=== PATIENT | male | born 1950 | race Two or more races ===

== ENCOUNTER 2017-02-26 15:47 | Emergency (ER) | payer OTHER ==
[~2017-02-26] VITALS: Ht 152.4 cm; Wt 49.9 kg
[2017-02-26 15:57] VITALS: BP 174/107
[2017-02-26] MEDS ORDERED: HYDROCODONE/APAP 5/325MG 1 EACH TABLET ONE (16:17)
[2017-02-26] MEDS ORDERED: ONDANSETRON 4 MG TAB.RAPDIS ONE (16:18)
--- NOTE | 2017-02-26 16:23 | NUR ---
PT TO RADIOLOGY FOR LUMBAR SPINE XRAY VIA WHEELCHAIR.
[2017-02-26] MEDS ORDERED: HYDROCODONE/APAP 5/325MG 1 EACH TABLET PO ONE (16:30)
[2017-02-26] MEDS ORDERED: ONDANSETRON 4 MG TAB.RAPDIS SL ONE (16:30)
== END 2017-02-26 17:57 | disposition home or self-care (01) ==
LOC: ER 15:50
DX: S62.305A Unspecified fracture of fourth metacarpal bone, left hand, initial encounter for closed fracture (principal); M25.552 Pain in left hip; M54.5 Low back pain; I10 Essential (primary) hypertension; Z98.890 Other specified postprocedural states; W19.XXXA Unspecified fall, initial encounter; Y93.89 Activity, other specified; Y92.091 Bathroom in other non-institutional residence as the place of occurrence of the external cause; Y99.8 Other external cause status
CPT/HCPCS: 29125; 72100; 73120; 73503; 99284; A4606; Q0162; Z7610; 73502

== ENCOUNTER 2017-12-09 17:04 | Emergency (ER) | payer MEDICARE, OTHER ==
[~2017-12-09] VITALS: Ht 167.6 cm; Wt 74.8 kg
--- NOTE | 2017-12-09 17:05 | NUR ---
[id number] FROM HOME: CHEST PAIN x 30 MIN RADIATES TO ABDOMEN S/P DRINKING ALCOHOL. PATIENT HAD HIGH BP, DID NOT TAKE HOME BP MEDS TODAY. ASA 162, NITRO 1 SPRAY GIVEN. A/OX 4. BREATHING EVEN AND UNLABORED. NO SOB, NAD, VITALS STABLE. SAFETY AND COMFORT MEASURES IN PLACE. AWAITING MD ORDERS.
--- NOTE | 2017-12-09 17:08 | NUR ---
IV ACCESSED BY DIDI KAUR- BLOOD SAMPLE SENT TO LAB
--- NOTE | 2017-12-09 17:10 | NUR ---
EKG IN PROGRESS
[2017-12-09] MEDS ORDERED: ASPIRIN 81 MG TAB.CHEW ONE (17:23)
[2017-12-09 17:24] LABS: BASOPHILS # (AUTO) 0.1 /CMM (0.0-0.2); BASOPHILS % (AUTO) 0.5 % (0.0-2.0); EOSINOPHILS % (AUTO) 1.3 % (0.0-6.0); HEMATOCRIT 44 % (39-51); HEMOGLOBIN 15.1 g/dL (13.5-17.5); LYMPHOCYTES # (AUTO) 2.2 /CMM (0.8-4.8); LYMPHOCYTES % (AUTO) 17.7 % (20.0-44.0); MEAN CORPUSCULAR HGB CONC 34 g/dl (31.0-36.0); MEAN CORPUSCULAR VOLUME 89 fL (80-96); MONOCYTES # (AUTO) 0.9 /CMM (0.1-1.30); MONOCYTES % (AUTO) 7.6 % (2.0-12.0); NEUTROPHILS % (AUTO) 72.9 % (43.0-81.0); PLATELET COUNT (AUTO) 283 /CMM (150-450); RDW COEFFICIENT OF VARIATION 12.4 (11.5-15.0); RED BLOOD CELL COUNT(AUTO) 4.94 MIL/uL (4.5-6.0); WHITE BLOOD COUNT (AUTO) 12.4 K/uL (4.3-11.0)
--- NOTE | 2017-12-09 17:27 | NUR ---
[employer] AT BEDSIDE.
[2017-12-09] MEDS ORDERED: ASPIRIN 325 MG TABLET PO ONE (17:30)
[2017-12-09 17:34] LABS: CALCIUM, SERUM 9.2 mg/dL (8.5-10.1); CARBON DIOXIDE 27 mmol/L (21-32); CHLORIDE 103 mmol/L (98-107); CREATININE 0.7 mg/dL (0.6-1.3); GLUCOSE 134 mg/dL (74-106); POTASSIUM 3.5 mmol/L (3.5-5.1); SODIUM SERUM 139 mmol/L (136-145); UREA NITROGEN, BLOOD 13 mg/dL (7-18)
[2017-12-09 17:38] LABS: INR 0.89 (0.85-1.15)
[2017-12-09] MEDS ORDERED: MORPHINE SULFATE INJ 4 MG/ML DISP.SYRIN ONE (17:47)
[2017-12-09 17:49] LABS: BILIRUBIN,DIRECT 0.1 mg/dL (0.0-0.2); BILIRUBIN,TOTAL 0.4 mg/dL (0.2-1.0); TOTAL PROTEIN, SERUM 7.6 g/dL (6.4-8.2)
[2017-12-09 17:56] LABS: TROPONIN I < 0.017 ng/mL (0.00-0.056)
[2017-12-09] MEDS ORDERED: IOHEXOL-350 100 ML VIAL IV ONE (18:20)
[2017-12-09] MEDS ORDERED: IV NS 0.9% 250 ML IV ONE (18:20)
--- NOTE | 2017-12-09 18:41 | NUR ---
PATIENT TAKEN TO CTA VIA STRETCHER.
--- NOTE | 2017-12-09 18:59 | NUR ---
PATIENT RETURNED FROM CT IN STABLE CONDITION.
--- NOTE | 2017-12-09 19:15 | NUR ---
REPORT GIVEN TO ESTEFANIA TOLBERT FOR GURPREET.
--- NOTE | 2017-12-09 20:00 | NUR ---
Patient does not wish to proceed with medical care recommended by Dr. Puri. Patient given information related to possible complications, up to and including , which could occur as a result of leaving the hospital at this time. Patient verbalizes understanding of risks involved due to leaving against medical advice. Patient has signed AMA form.
--- NOTE | 2017-12-09 20:08 | NUR ---
IV removed. Catheter intact and site benign. Pressure and 4x4 applied to site. No bleeding noted. Patient discharged to home in stable condition. Written and verbal after care instructions given. Patient verbalizes understanding of instruction. Patient is ambulatory with steady gait, accompanied by family. vss. nad noted. no further complaints.
[2017-12-09 20:09] VITALS: BP 156/74
== END 2017-12-09 20:10 | disposition home or self-care (01) ==
LOC: ER 17:07
DX: R07.89 Other chest pain (principal); I10 Essential (primary) hypertension; F17.290 Nicotine dependence, other tobacco product, uncomplicated; Z90.89 Acquired absence of other organs; Z60.2 Problems related to living alone; Z79.82 Long term (current) use of aspirin
CPT/HCPCS: 36415; 71045-TC; 80048-TC; 80076-TC; 83690-TC; 84484-TC; 85025-TC; 85730-TC; A4606; J2270; J7050; Q9967; Z7610